=== PATIENT | female | born 1985 | race Caucasian/White ===

== ENCOUNTER 2019-03-21 07:45 | Day surgery (SDC) | payer OTHER ==
[2019-03-21] MEDS ORDERED: MIDAZOLAM 2 MG/2 ML VIAL IVP ONE (07:46)
[2019-03-21] MEDS ORDERED: PROPOFOL 200 MG/20 ML VIAL IVP ONE (07:46)
[2019-03-21] MEDS ORDERED: DEXAMETHASONE 4 MG/ML VIAL IVP ONE (07:46)
[2019-03-21] MEDS ORDERED: KETOROLAC 30 MG/ML VIAL IVP ONE (07:46)
[2019-03-21] MEDS ORDERED: HYDROmorphone 1 MG/ML SYRINGE IM ONE (07:46)
[2019-03-21] MEDS ORDERED: CEFAZOLIN SODIUM IN 0.9 % NACL 2 GM/100 ML BAG IV ONE (08:00)
[2019-03-21 08:01] LABS: HCG UR QUAL NEGATIVE
[2019-03-21] MEDS ORDERED: BUPIVACAINE 0.25% PF 30 ML VIAL ONE (08:29)
[2019-03-21] MEDS ORDERED: LACTATED RINGERS 1,000 ML IV ONE (08:31)
--- NOTE | 2019-03-21 08:31 | ANESTHESIA ---
Pre-Anesthesia VS, & Labs - Diagnosis left carpal tunnel syndrome - Procedure left carpal tunnel release Vital Signs: Temp Pulse Resp BP Pulse Ox 36.2 C L 77 18 136/94 H 97 03/21/19 07:57 03/21/19 07:57 03/21/19 07:57 03/21/19 07:57 03/21/19 07:57 Height 5 ft 8 in Weight (kg) 126.4 kg - NPO >8 hours - Is Patient ?: No Home Medications and Allergies Home Medications: Ambulatory Orders Citalopram [CeleXA] 40 mg PO DAILY 03/21/19 Levothyroxine [Synthroid] 75 mcg PO QDAC 03/21/19 Lisinopril [Zestril] 03/21/19 Nifedipine [Nifedipine ER] 30 mg PO 03/21/19 Citalopram [CeleXA] 40 mg PO DAILY 03/21/19 Levothyroxine [Synthroid] 75 mcg PO QDAC 03/21/19 Lisinopril [Zestril] 03/21/19 Nifedipine [Nifedipine ER] 30 mg PO 03/21/19 Allergies/Adverse Reactions: Allergies Allergy/AdvReac Type Severity Reaction Status Date / Time No Known Drug Allergies Allergy Verified 03/21/19 08:06 Anes History & Medical History - Anesthetic History Anesthesia Complications: reports: Slow wake-up - Medical History Cardiovascular: reports: Hypertension Pulmonary: reports: None Gastrointestinal: reports: Crohn's disease, Other (morbid obesity) Urinary: reports: None Neuro: reports: None Musculoskeletal: reports: None Endocrine/Autoimmune: reports: HyPOthyroidism Skin: reports: Eczema Smoking Status: Never smoker Psychosocial: reports: Depression, Anxiety - Surgical History Eyes Ears Nose Throat (EENT): Tonsil/Adenoidectomy Gynecologic: section, LEEP (Cervical surgery) Orthopedic: Carpal Tunnel surgery, Other Exam General: Alert, Oriented x3, Cooperative, No acute distress Dental: WNL Mouth Openin Fingerbreadth Neck Mobility: Normal Mallampati classification: II Thyromental Distance: greater than 6 cm Respiratory: Lungs clear, Normal breath sounds, No respiratory distress, No accessory muscle use Cardiovascular: Regular rate, Normal S1, Normal S2, No murmurs Mental/Cognitive Status: Alert/Oriented X3, Normal for patient Plan Anesthesia Type: General Consent for Procedure(s) Verified and Reviewed: Yes Code Status: Attempt Resuscitation ASA classification: 2-Mild systemic disease Is this case an emergency?: No
[2019-03-21] MEDS ORDERED: BUPIVACAINE 0.25% PF 10 ML VIAL ONE (08:43)
[2019-03-21] MEDS ORDERED: BUPIVACAINE 0.25% PF 10 ML VIAL SUBQ ONE ×2 (09:02)
[2019-03-21] MEDS ORDERED: oxyCODONE 5 MG TABLET PO PRN (09:40)
[2019-03-21] MEDS ORDERED: ONDANSETRON 4 MG/2 ML VIAL IVP PRN (09:40)
[2019-03-21] MEDS: fentaNYL 100 MCG/2 ML VIAL ONE ×2 (09:49→09:54)
--- NOTE | 2019-03-21 09:52 | OPERATIVE REPORT ---
Operative Report - General Procedure Date: 03/21/19 Planned Procedure: Left open carpal tunnel release Pre-Op Diagnosis: Left carpal tunnel syndrome Procedure Performed: Left open carpal tunnel release Post Op Diagnosis: Left carpal tunnel syndrome - Procedure Note Primary Surgeon: LATRICIA ALCANTAR Secondary Surgeon: ALEXA MUNGUIA Anesthesia Technique: General LMA Estimated Blood Loss (mL): 5 - Other Other Information/Narrative: Tourniquet Time: 15 minutes at 250mmHg. Specimen(s) Information: None Complication(s): None Condition: Stable to recovery Indications for Surgery: The patient is a 33-year-old right-hand dominant female with a 12-year history of left hand numbness and tingling in the median nerve distribution. She underwent right carpal tunnel release in 2008, but deferred treatment of her left due to life events. Clinical exam and EMG consistent with left carpal tunnel syndrome with slowed conduction velocity across the wrist at 23 m/s. They had failed non-operartive management and desired surgical intervention. Risks of surgery were discussed to include bleeding, infection, postoperative wrist stiffness, damage to nerves (including the median nerve and recurrent motor branch to the thenar musculature), vessels, tendons, ligaments, anesthesia complications to include medication side effects and allergic reactions, blood clot, stroke, heart attack and even . After a discussion, they wished to proceed. Findings: Thickened transverse carpal ligament Descriptions of Procedure: The patient was met in the Preoperative Holding Area, at which time preoperative paperwork was confirmed. The left volar wrist was signed. The patient was then brought to Main Operating Room, placed supine on the Operating Room table, at which time pre procedure timeout was conducted to confirm correct patient, correct extremity and correct procedure and also to confirm presence and sterility of all required equipment and to confirm that antibiotics were being administered in the form of 2g of intravenous Ancef. After this was confirmed, general anesthesia was induced. The operative extremity was then prepped and draped over a hand table in the normal sterile fashion after a well-padded tourniquet was placed on the proximal arm. A final timeout was conducted to confirm the correct patient, correct extremity and correct procedure and to confirm that antibiotics had been administered within 30 minutes of incision time. The operative extremity was then exsanguinated with an Esmarch bandage and tourniquet inflated to 250mmHg. Wagner's cardinal line and the proximal projection of the ulnar border of the flexed fourth digit were marked on the hand. A 3cm longitudinal incision was made with a #15 blade through skin and subcutaneous tissue. Dissection was further carried out with tenotomy scissors. Small crossing vessels were coagulated with bipolar electrocautery, the palmar fascia was exposed, and split longitudinally in line with its fibers, the fat was retracted, and the transverse carpal ligament was exposed. A 15 blade was used to make a small incision in the transverse carpal ligament, and then a sfreer elevator was introduced directly deep to the ligament above the contents of the carpal tunnel to gently free off any adhesions between the deep surface of the transverse carpal ligament and the median nerve. Dissection was carried distally under direct visualization, releasing the transverse carpal ligament until the palmar fat was was visualized. Digital examination was performed to ensure that there were no remaining tight bands constricting the nerve. Attention was then turned proximally, and a Flushing elevator was passed deep to the transverse carpal ligament and antebrachial fascia, and these were incised in line with the nerve approximately 2 cm proximal to the distal wrist crease. This was performed under direct visualization. A freer was passed proximally to ensure no tight bands or constrictive points remained over the nerve. Satisfied that the carpal tunnel had been completely released, the wound was irrigated, and the tourniquet was let down. Pressure was held on the incision for approximately 5 minutes, and bleeding points were then cauterized with bipolar electrocautery. After ensuring good hemostasis, the wound was again irrigated and then closed using 4-0 Nylon in interrupted vertical and horizontal mattress fashion. 6 mL of quarter percent Marcaine plain was injected into the katy- incisional soft tissues. The wound was then dressed with Xeroform, 4 x 4 gauze, webril and a compressive Wu wrap. The patient was then awakened from general anesthesia without complication, brought to the Post Anesthesia Care for further recovery. Postoperative Plan: 1. The patient will be discharged from the Same Day Surgery Unit when discharge criteria are met. 2. The patient will remain in a soft dressing for 5 days. They can begin gentle wrist range of motion on postoperative day #1 or #2 as pain allows. 3. The patient will follow up in 10-14 days for suture removal and steri-strip placement the following week. 4. Expect return to full activity/duty in 6-8 weeks, they may have wrist stiffness and palmar pain postoperatively.
[2019-03-21] MEDS ORDERED: ONDANSETRON 4 MG/2 ML VIAL ONE (10:45)
[2019-03-21] MEDS ORDERED: oxyCODONE 5 MG TABLET ONE (11:01)
[2019-03-21 11:55] VITALS: BP 131/69
== END 2019-03-21 07:46 | disposition home or self-care (01) ==
LOC: SDS 07:45
PROVIDERS: ATTEND Orthopaedic Surgery
PROC: 01N50ZZ Release Median Nerve, Open Approach (ICD-10-PCS; principal; 2019-03-21 08:45)
DX: G56.02 Carpal tunnel syndrome, left upper limb (principal); I10 Essential (primary) hypertension; K50.90 Crohn's disease, unspecified, without complications; E66.01 Morbid (severe) obesity due to excess calories; Z68.41 Body mass index [BMI] 40.0-44.9, adult; E03.9 Hypothyroidism, unspecified; F32.9 Major depressive disorder, single episode, unspecified; F41.9 Anxiety disorder, unspecified
CPT/HCPCS: 64721; 81025; A9270; J0690; J1170; J7120